=== PATIENT | female | born 1995 | race Caucasian/White ===

== ENCOUNTER 2024-06-23 02:06 | Emergency (ER) | payer SELFPAY ==
[~2024-06-23] VITALS: Ht 175.3 cm; Wt 90.0 kg
[2024-06-23 02:13] VITALS: TEMP 98.1; O2SAT 99
[2024-06-23 02:57] LABS: BASOPHILS % 0.3 % (0.0-2.0); EOSINOPHILS % 1.7 % (0.0-5.0); HEMATOCRIT. 25.4 % (36.0-48.0); HEMOGLOBIN. 8.6 g/dL (12.0-16.0); LYMPHOCYTES % 24.5 % (20.0-50.0); MEAN CORPUSCULAR HEMOGLOBIN 29.3 pg (28.0-32.0); MEAN CORPUSCULAR VOLUME 86.2 fL (81.0-99.0); MEAN PLATELET VOLUME 8.6 fl (7.4-10.4); MONOCYTES % 4.4 % (2.0-8.0); NEUTROPHILS % 69.1 % (40.0-76.0); PLATELET 195 x1000/uL (130-400); RED BLOOD CELL COUNT 2.95 mill/uL (4.2-5.4); RED CELL DISTRIBUTION WIDTH 14.1 % (11.6-14.6); WHITE BLOOD COUNT 10.1 x1000/uL (4.5-11.0)
[2024-06-23 03:00] LABS: CHLORIDE 109 mEq/L (98-107); POTASSIUM 3.6 mEq/L (3.5-5.1); SODIUM 139 mEq/L (136-145)
[2024-06-23 03:01] LABS: CARBON DIOXIDE 26 mEq/L (21-32)
[2024-06-23 03:02] LABS: CALCIUM 9.1 mg/dL (8.7-10.4)
[2024-06-23 03:06] LABS: CREATININE 0.7 mg/dL (0.6-1.0); GLUCOSE 140 mg/dL (70-105)
[2024-06-23 03:07] LABS: UREA NITROGEN BLOOD 10 mg/dL (9-23)
[2024-06-23] MEDS: SODIUM CHLORIDE 0.9% 1,000 ML IV ONE (03:38)
[2024-06-23] MEDS: ACETAMINOPHEN 325MG TABLET PO ONE (03:42)
[2024-06-23] MEDS: ONDANSETRON HCL 4MG/2ML INJ IV ONE (03:42)
[2024-06-23] MEDS ORDERED: ACET-2708 MT (04:33)
[2024-06-23] MEDS ORDERED: ONDA4TAB50 MT (04:33)
[2024-06-23 05:20] VITALS: BP 115/78; PULSE 62; RESP 17; O2SAT 100
== END 2024-06-23 05:20 | disposition home or self-care (01) ==
LOC: ER 02:06
DX: R55 Syncope and collapse (principal); N93.9 Abnormal uterine and vaginal bleeding, unspecified; R10.2 Pelvic and perineal pain
CPT/HCPCS: 99285; 96374; 76801; 96361; 80048; 84702; 85025; 86850; 86900; 86901; 36415; 76817; J2405; J7030